=== PATIENT | female | born 1975 | race African-American/Black ===

== ENCOUNTER 2021-07-28 01:06 | Emergency (ER) | payer OTHER ==
[~2021-07-28] VITALS: Ht 165.1 cm; Wt 81.8 kg
--- NOTE | 2021-07-28 02:40 | ED.ADGEN ---
Past Medical History Past Medical History: No Pertinent History Past Surgical History: Tubal ligation Additional Past Surgical Histo: Smoking Status: Former Smoker Alcohol Use: Occasionally Drug Use: Marijuana General Adult EDM: Chief Complaint: ABDOMINAL PAIN HPI: HPI: Patient is a 45 year old female coming in for burning epigastric pain for the past 8 days. Patient states the pain is worse with food. Also states she has been belching more. Denies any vomiting or diarrhea. No history of abdominal surgeries. Patient has been taking ibuprofen and Tums for the symptoms and states symptoms are temporarily resolved with the Tums Review of Systems: Review of Systems: All other systems within normal limits except for as noted in the HPI Current Medications: Current Medications Medications (Trade) Dose Ordered Sig/Stephanie Start Time Stop Time Status Last Admin Dose Admin Famotidine (Pepcid Vial) 20 mg 1X ONCE 07/28/21 03:30 07/28/21 03:31 DC 07/28/21 03:31 20 MG Multi-Ingredient Mouthwash/Gargle (Gi Cocktail) 20 ml 1X ONCE 07/28/21 03:00 07/28/21 03:01 DC 07/28/21 02:39 20 ML Sucralfate (Carafate) 1 gm 1X ONCE 07/28/21 03:30 07/28/21 03:31 DC 07/28/21 03:32 1 GM Allergies: Allergies: Allergies Coded Allergies Type Severity Reaction Last Updated Verified sulfamethoxazole Allergy Intermediate itching 07/28/21 Yes trimethoprim Allergy Intermediate itching 07/28/21 Yes Physical Exam: PE: Constitutional: Well developed, well nourished, no acute distress, non-toxic appearance. [] HENT: Normocephalic, atraumatic, bilateral external ears normal, nose normal. [] Eyes: PERRLA, conjunctiva normal, no discharge. [] Neck: No rigidity, supple, no stridor. [] Cardiovascular: Regular rate and rhythm, brisk cap refill [] Lungs & Thorax: Non labored symmetric respirations, no tachypnea or respiratory distress [] Abdomen: Soft, nondistended, epigastric tenderness without guarding or rebound, negative Lindsay's. Skin: Warm, dry, no erythema, no rash. [] Back: Unremarkable Extremities: No deformities, range of motion grossly intact, no lower extremity edema [] Neurologic: Alert and oriented X 3, no focal deficits noted. [] Psychologic: Affect normal, judgement normal, mood normal. [] Current Patient Data: Labs: Laboratory Tests Test 07/28/21 01:53 POC Urine HCG, Qualitative Hcg negative (Negative) Vital Signs: Vital Signs Date Time Temp Pulse Resp B/P (MAP) Pulse Ox O2 Delivery O2 Flow Rate FiO2 07/28/21 02:25 98.4 77 16 134/95 (108) 100 98.4 EKG: EKG: [] Heart Score: C/O Chest Pain: No Risk Factors: Risk Factors: DM, Current or recent (<one month) smoker, HTN, HLP, family history of CAD, obesity. Risk Scores: Score 0 - 3: 2.5% MACE over next 6 weeks - Discharge Home Score 4 - 6: 20.3% MACE over next 6 weeks - Admit for Clinical Observation Score 7 - 10: 72.7% MACE over next 6 weeks - Early Invasive Strategies Radiology/Procedures: Radiology/Procedures: [] Course & Med Decision Making: Course & Med Decision Making Patient's pain improved with GI cocktail. Discussed return precautions. Will discharge with instructions for primary care follow-up and antacid medication Dragruben Disclaimer: Dragruben Disclaimer: This electronic medical record was generated, in whole or in part, using a voice recognition dictation system. Departure Departure Impression: Primary Impression: Epigastric abdominal pain Disposition: HOME / SELF CARE / HOMELESS Condition: STABLE Referrals: NO PCP (PCP) Patient Instructions: Diet for Gastroesophageal Reflux Disease, Adult Scripts Omeprazole (OMEPRAZOLE) 40 Mg Capsule. 1 CAP PO DAILY for antacid for 30 Days, #30 CAP 3 Refills Prov: AXEL JESSICA MD 07/28/21 Sucralfate (CARAFATE) 1 Gm Tablet 1 TAB PO TID PRN for stomach pain for 30 Days, #60 TAB 0 Refills Prov: AXEL JESSICA MD 07/28/21 AXEL JESSICA MD Jul 28, 2021 02:40
[2021-07-28] MEDS ORDERED: LIDO:MAALOX 1:1 20 ML SINGLE DOSE. SWSW ONE (03:00)
[2021-07-28] MEDS ORDERED: FAMOTIDINE 20 MG/2 ML VIAL IM ONE (03:30)
[2021-07-28] MEDS ORDERED: SUCRALFATE 1 GM TABLET. PO ONE (03:30)
[2021-07-28] MEDS ORDERED: OMEP40CA7 PO (04:13)
[2021-07-28] MEDS ORDERED: SUCR1TAB35 PO (04:13)
[2021-07-28 05:45] VITALS: BP 152/98
== END 2021-07-28 06:05 | disposition home or self-care (01) ==
LOC: ER 01:06
DX: R10.13 Epigastric pain (principal); Z87.891 Personal history of nicotine dependence; Z98.51 Tubal ligation status; Z88.1 Allergy status to other antibiotic agents; Z88.2 Allergy status to sulfonamides
CPT/HCPCS: 81025; 96372; 99285; J3490

== ENCOUNTER 2022-03-03 14:54 | Emergency (ER) | payer OTHER ==
[~2022-03-03] VITALS: Ht 167.6 cm; Wt 82.0 kg
[~2022-03-03 14:54] MED LIST: OMEP40CA7 PO; SUCR1TAB35 PO
[2022-03-03] MEDS ORDERED: CYCLOBENZAPRINE 10 MG TABLET. PO ONE (16:30)
[2022-03-03] MEDS ORDERED: HYDROcodone/APAP 5/325MG 1 TAB TABLET PO ONE (16:30)
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
[2022-03-03] MEDS ORDERED: NAPR-514 PO (17:36)
[2022-03-03] MEDS ORDERED: CYCL10TA19 PO (17:36)
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
[2022-03-03 17:38] VITALS: BP 119/94
== END 2022-03-03 17:46 | disposition home or self-care (01) ==
LOC: ER 14:54
DX: S13.9XXA Sprain of joints and ligaments of unspecified parts of neck, initial encounter (principal); M54.6 Pain in thoracic spine; M25.561 Pain in right knee; M25.552 Pain in left hip; R51.9 Headache, unspecified; Z98.51 Tubal ligation status; Z88.1 Allergy status to other antibiotic agents; Z88.2 Allergy status to sulfonamides; V49.49XA Driver injured in collision with other motor vehicles in traffic accident, initial encounter; Y93.89 Activity, other specified; Y92.488 Other paved roadways as the place of occurrence of the external cause; Y99.8 Other external cause status
CPT/HCPCS: 70450; 72072; 72125; 73502; 73562; 99284-25